=== PATIENT | male | born 1945 | race Caucasian/White ===

== ENCOUNTER 2019-04-22 13:39 | Emergency (ER) | payer MEDICARE ==
[~2019-04-22] VITALS: Ht 396.5 cm; Wt 84.0 kg
[~2019-04-22 13:39] MED LIST: LIDOcaine 1% W/epiNEPHrine 1:100,000 20ml vial ONE
[2019-04-22 13:47] VITALS: BP 153/83
[2019-04-22] MEDS ORDERED: ondansetron 4mg rapidly disintigrating tab PO ONE (16:00)
[2019-04-22] MEDS ORDERED: HYDROcodone/acetaminophen 5mg/325mg tablet PO ONE (16:00)
[2019-04-22] MEDS ORDERED: HYDR-4383 PO (16:29)
[2019-04-22] MEDS ORDERED: AMOX-580 PO (16:29)
[2019-04-22] MEDS ORDERED: IBUP-1984 PO (16:29)
[2019-04-22] MEDS ORDERED: BACDS PO (16:29)
[2019-04-22 16:37] LABS: BASOPHILS # (AUTO) 0.1 X10'3 (0-0.2); BASOPHILS % (AUTO) 0.5 % (0-1); EOSINOPHILS % (AUTO) 0.2 % (0-6); HEMATOCRIT 38.9 % (42.0-52.0); HEMOGLOBIN 12.9 g/dl (14.0-17.9); LYMPHOCYTES # (AUTO) 0.5 X10'3 (1.1-4.8); LYMPHOCYTES % (AUTO) 2.6 % (21-51); MEAN CORPUSCULAR HEMOGLOBIN 27.7 PG (27.0-31.0); MEAN CORPUSCULAR HGB CONC 33.3 g/dL (33.0-36.5); MEAN CORPUSCULAR VOLUME 83.3 FL (78-98); MEAN PLATELET VOLUME 7.3 FL (7.4-10.4); MONOCYTES # (AUTO) 0.6 X10'3 (0-0.9); MONOCYTES % (AUTO) 3.3 % (2-12); NEUTROPHILS # (AUTO) 16.5 X10'3 (1.8-7.7); NEUTROPHILS % (AUTO) 93.4 % (42-75); PLATELET COUNT 265 X10'3 (140-440); RED BLOOD COUNT 4.67 X10'6 (4.70-6.10); RED CELL DISTRIBUTION WIDTH 14.3 % (11.5-14.5); WHITE BLOOD COUNT 17.7 X10'3 (4.5-11.0)
[2019-04-22 16:47] LABS: ALANINE AMINOTRANSFERASE 36 U/L (12-78); ALBUMIN 3.4 G/DL (3.4-5.0); ALBUMIN/GLOBULIN RATIO 0.8 (1.1-1.5); ALKALINE PHOSPHATASE 107 IU/L (46-116); ANION GAP 8 (8-16); ASPARTATE AMINO TRANSFERASE 26 U/L (10-37); BILIRUBIN,TOTAL 0.4 MG/DL (0.1-1.0); BLOOD UREA NITROGEN 14 MG/DL (7-18); BUN/CREATININE RATIO 17.1 (5.4-32.0); CALCIUM 8.5 MG/DL (8.5-10.1); CHLORIDE 102 MMOL/L (99-107); CREATININE 0.82 MG/DL (0.60-1.10); GLUCOSE 155 MG/DL (70-104); SODIUM 140 MMOL/L (135-145); TOTAL CARBON DIOXIDE 30.5 MMOL/L (24-32); TOTAL PROTEIN 7.8 G/DL (6.4-8.2); eGFR > 90 ML/MIN
[2019-04-22 17:23] LABS: CLARITY,URINE SLIGHTLY CLOUDY (Clear); COLOR,URINE YELLOW (Yellow); GLUCOSE, URINE NEGATIVE (Neg); KETONES,URINE NEGATIVE (Neg); LEUKOCYTE ESTERASE ,URINE NEGATIVE (Neg); NITRITES, URINE NEGATIVE (Neg); OCCULT BLOOD,URINE NEGATIVE (Neg); PROTEIN,URINE NEGATIVE (Neg); UA COLLECTION TYPE URINAL
[2019-04-22 17:30] LABS: MUCUS STRANDS MODERATE /LPF (Neg); SQUAMOUS EPITHELIAL CELL,UR FEW /LPF (FEW)
[2019-04-22 17:31] LABS: BACTERIA,URINE FEW /HPF (Neg); RBC,URINE 0-2 /HPF (0-2); TRANSITIONAL EPI CELLS,URINE FEW /HPF; WBC,URINE 0-4 /HPF (0-4)
--- NOTE | 2019-04-22 17:45 | NUR ---
I called and spoke with patients sister listed in the chart, Reanna. She asked what happened with the patient, with the patients permission I told her that he was brought in via ems and mildly altered. She stated "he's probably drunk, hes always drunk." She also stated that she "didn't want to get involved with that " I advised her that we needed to make sure he got home safe. To this, she agreed. Charge nurse and RN were advised of the conversation and patient was also advised that his sister would be here to pick him up soon. He agreed to wait.
== END 2019-04-22 17:53 | disposition home or self-care (01) ==
LOC: ER 13:40 → EDBD 13:40 → ER 17:53
DX: M70.42 Prepatellar bursitis, left knee (principal); I10 Essential (primary) hypertension; Z79.899 Other long term (current) drug therapy; X58.XXXA Exposure to other specified factors, initial encounter; Y93.89 Activity, other specified; Y92.89 Other specified places as the place of occurrence of the external cause; Y99.8 Other external cause status
CPT/HCPCS: 20610; 36415; 73564; 80053; 81001; 85025; 87070; 87077; 87186; 99284